=== PATIENT | female | born 1980 | race Caucasian/White ===

== ENCOUNTER 2016-09-29 10:01 | Emergency (ER) | payer MEDICAID ==
--- NOTE | 2016-09-29 10:32 | ER Document Report ---
ED General - General Chief Complaint: Shortness Of Breath Stated Complaint: SHORTNESS OF BREATH Time Seen by Provider: 09/29/16 10:32 Mode of Arrival: Ambulatory Information source: Patient Notes: 35-year-old female 4 para 3 who is 35 weeks presents with complaints of 1 month duration of shortness of breath that worsens when she lays flat. Patient denies any fevers or chills denies any productive cough. Patient notes symptoms are intermittent throughout this month. TRAVEL OUTSIDE OF THE [place] IN LAST 30 DAYS: No - HPI Onset: Just prior to arrival Onset/Duration: Sudden Quality of pain: No pain Severity: Mild Pain Level: Denies Associated symptoms: Shortness of breath Exacerbated by: Supine Relieved by: Standing Similar symptoms previously: Yes Recently seen / treated by doctor: No - Related Data Allergies/Adverse Reactions: No Known Allergies Allergy (Unverified 09/29/16 10:09) Past Medical History - Social History Smoking Status: Never Smoker Cigarette use (# per day): No Chew tobacco use (# tins/day): No Smoking Education Provided: No Frequency of alcohol use: None Drug Abuse: None Family History: Reviewed & Not Pertinent Patient has suicidal ideation: No Patient has homicidal ideation: No Renal/ Medical History: Denies: Hx Peritoneal Dialysis Psychiatric Medical History: Reports: Hx Depression Past Surgical History: Reports: Hx Section - x2 Review of Systems - Review of Systems Notes: REVIEW OF SYSTEMS: CONSTITUTIONAL : Denies fever, chills, or sweats. Denies recent illness. EENT: Denies eye, ear, throat, or mouth pain or symptoms. Denies nasal or sinus congestion or discharge. Denies throat, tongue, or mouth swelling or difficulty swallowing. CARDIOVASCULAR: Denies chest pain. Denies palpitations or racing or irregular heart beat. Denies ankle edema. RESPIRATORY: admits to sob GASTROINTESTINAL: Denies abdominal pain or distention. Denies nausea, vomiting , or diarrhea. Denies blood in vomitus, stools, or per rectum. Denies black, tarry stools. Denies constipation. GENITOURINARY: Denies difficulty urinating, painful urination, burning, frequency, blood in urine, or discharge. FEMALE GENITOURINARY: Denies vaginal bleeding, heavy or abnormal periods, irregular periods. Denies vaginal discharge or odor. MUSCULOSKELETAL: Denies back or neck pain or stiffness. Denies joint pain or swelling. SKIN: Denies rash, lesions or sores. HEMATOLOGIC : Denies easy bruising or bleeding. LYMPHATIC: Denies swollen, enlarged glands. NEUROLOGICAL: Denies confusion or altered mental status. Denies passing out or loss of consciousness. Denies dizziness or lightheadedness. Denies headache. Denies weakness or paralysis or loss of use of either side. Denies problems with gait or speech. Denies sensory loss, numbness, or tingling. Denies seizures. PSYCHIATRIC: Denies anxiety or stress. Denies depression, suicidal ideation, or homicidal ideation. ALL OTHER SYSTEMS REVIEWED AND NEGATIVE. Dictation was performed using [email or web address] voice recognition software PHYSICAL EXAMINATION: GENERAL: Well-appearing, well-nourished and in no acute distress. HEAD: Atraumatic, normocephalic. EYES: Pupils equal round and reactive to light, extraocular movements intact, conjunctiva are normal. ENT: Nares patent, oropharynx clear without exudates. Moist mucous membranes. NECK: Normal range of motion, supple without lymphadenopathy LUNGS: Breath sounds clear to auscultation bilaterally and equal. No wheezes rales or rhonchi. HEART: Regular rate and rhythm without murmurs ABDOMEN: gravid abd Female : deferred Musculoskeletal: Normal range of motion, no pitting or edema. No cyanosis. NEUROLOGICAL: Cranial nerves grossly intact. Normal speech, normal gait. Normal sensory, motor exams PSYCH: Normal mood, normal affect. SKIN: Warm, Dry, normal turgor, no rashes or lesions noted. Physical Exam - Vital signs Vitals: Temp Pulse Resp BP Pulse Ox 97.7 F 102 H 20 117/66 97 09/29/16 10:09 09/29/16 10:09 09/29/16 10:09 09/29/16 10:09/29/16 10:09 Course - Re-evaluation Re-evalutation: 09/29/16 10:35 Patient has probable shortness of breath due to her , since it worsened when she lays flat I believe it is the baby pushing on the diaphragm. X-ray is pending at this time no life-threatening issues are noted I did discuss with her risks and benefits of a CTA looking for a pulmonary emboli but we defer at this time 09/29/16 11:02 Given that shortness of breath has been constant, over the past month patient is in no significant respiratory distress, I will discharge her to follow-up upstairs with labor and delivery for evaluation of the . We did again discuss a pulmonary emboli and defer at this time for further imaging After performing a Medical Screening Examination, I estimate there is LOW risk for RUPTURED ESOPHAGUS, PNEUMOTHORAX, PULMONARY EMBOLISM, ACUTE CORONARY SYNDROME, OR THORACIC AORTIC DISSECTION, thus I consider the discharge disposition reasonable. I have reevaluated this patient multiple times and no significant life threatening changes are noted. The patient and I have discussed the diagnosis and risks, and we agree with discharging home with close follow-up. We also discussed returning to the Emergency Department immediately if new or worsening symptoms occur. We have discussed the symptoms which are most concerning (e.g., bloody sputum, worsening pain or shortness of breath) that necessitate immediate return. - Vital Signs Vital signs: Temp Pulse Resp BP Pulse Ox 97.7 F 102 H 20 117/66 97 09/29/16 10:09/29/16 10:09/29/16 10:09/29/16 10:09/29/16 10:09 - Diagnostic Test Radiology reviewed: Image reviewed, Reports reviewed - No acute abnormality Discharge - Discharge Clinical Impression: sob in Dyspnea Qualifiers: Dyspnea type: unspecified Qualified Code(s): R06.00 - Dyspnea, unspecified Condition: Stable Disposition: LABOR CHECK Instructions: Dyspnea, Nonspecific ([facility]) Additional Instructions: Follow up with your physician tomorrow for further care or return to the ED IMMEDIATELY if symptoms worsen or new concerns occur. If you cannot afford to follow up with your primary care physician a list of low cost clinics have been provided at the end of your discharge papers as well.
--- NOTE | 2016-09-29 10:59 | RADIOLOGY REPORT (SQ) ---
EXAM DESCRIPTION: CHEST PA/LAT COMPLETED DATE/TIME: 09/29/2016 10:52 am REASON FOR STUDY: sob, COMPARISON: None. EXAM PARAMETERS: NUMBER OF VIEWS: two views TECHNIQUE: Digital Frontal and Lateral radiographic views of the chest acquired. RADIATION DOSE: NA LIMITATIONS: none FINDINGS: LUNGS AND PLEURA: No opacities, masses or pneumothorax. No pleural effusion. MEDIASTINUM AND HILAR STRUCTURES: No masses or contour abnormalities. HEART AND VASCULAR STRUCTURES: Heart normal size. No evidence for failure. BONES: No acute findings. HARDWARE: None in the chest. OTHER: No other significant finding. IMPRESSION: NO SIGNIFICANT RADIOGRAPHIC FINDING IN THE CHEST. TECHNICAL DOCUMENTATION: JOB ID: [id number] [employer]- All Rights Reserved
[2016-09-29 11:10] VITALS: BP 107/72
== END 2016-09-29 11:10 | disposition admitted as inpatient to this hospital (09) ==
LOC: ER 10:01
DX: O26.93 Pregnancy related conditions, unspecified, third trimester (principal); R06.02 Shortness of breath; R06.00 Dyspnea, unspecified; Z3A.35 35 weeks gestation of pregnancy
CPT/HCPCS: 71020; 99284

== ENCOUNTER 2016-09-29 11:16 | Outpatient (CLI) | payer MEDICAID ==
--- NOTE | 2016-09-29 12:12 | Non Stress Test Report ---
Non Stress Test Datetime Report Generated by CPN: 09/29/2016 12:11 DEMOGRAPHIC EGA NST: 35.2 INDICATION Indication for Study: Other Indication for Study (NST) Other: AMA MONITORING Monitor Explained: Monitor Explained; Test Explained; Patient Verbalized Understanding Time on Monitor: 09/29/2016 11:33 Time off Monitor: 09/29/2016 12:03 NST Duration: 30 NST INTERVENTIONS NST Interventions: PO Hydration Physician Notified NST: Dr Dorado BABY A: [id number] BABY A Movement : Present Contraction Frequency : none FHR Baseline : 135 Accelerations : 15X15 Decelerations : None Variability : Moderate 6-25bpm NST Review: Meets Criteria for Reactive NST NST Review and Verified By : Gage Short RN NST Results: Reactive NST REPORT Report Trigger: Send Report
== END 2016-09-29 12:12 | disposition home or self-care (01) ==
LOC: LC 11:16
PROVIDERS: ATTEND Obstetrics & Gynecology
PROC: 4A1HXCZ Monitoring of Products of Conception, Cardiac Rate, External Approach (ICD-10-PCS; principal; 2016-09-29)
DX: O09.523 Supervision of elderly multigravida, third trimester (principal); Z3A.35 35 weeks gestation of pregnancy
CPT/HCPCS: 59025

== ENCOUNTER 2016-10-10 09:33 | Outpatient (CLI) | payer MEDICAID | END 2016-10-10 09:59 | disposition home or self-care (01) | LOC: LC 09:33 | PROVIDERS: ATTEND Obstetrics & Gynecology | PROC: 4A1HXCZ Monitoring of Products of Conception, Cardiac Rate, External Approach (ICD-10-PCS; principal; 2016-10-10) | DX: O09.523 Supervision of elderly multigravida, third trimester (principal); Z3A.36 36 weeks gestation of pregnancy | CPT/HCPCS: 59025 ==

== ENCOUNTER 2016-10-24 09:31 | Outpatient (CLI) | payer MEDICAID ==
--- NOTE | 2016-10-24 11:45 | RADIOLOGY REPORT (SQ) ---
EXAM DESCRIPTION: U/S OB LIMITED COMPLETED DATE/TIME: 10/24/2016 11:31 am REASON FOR STUDY: BURT COMPARISON: None. TECHNIQUE: Limited transvaginal grayscale ultrasound for evaluation of specific requested obstetrica l parameters. LIMITATIONS: None. FINDINGS: BURT: 7.4 cm. FHR: 139 beats per minute. PRESENTATION: Cephalic. OTHER: Posterior placenta. IMPRESSION: LIMITED OBSTETRICAL ULTRASOUND WITH MEASURED PARAMETERS DELINEATED ABOVE. Trimester of : Third trimester - 28 weeks to delivery. TECHNICAL DOCUMENTATION: JOB ID: [id number] [employer]- All Rights Reserved
== END 2016-10-24 11:45 | disposition home or self-care (01) ==
LOC: LC 09:31
PROVIDERS: ATTEND Obstetrics & Gynecology
DX: Z34.93 Encounter for supervision of normal pregnancy, unspecified, third trimester (principal)
CPT/HCPCS: 59025; 76815

== ENCOUNTER 2016-10-26 05:03 | Inpatient (IN) | payer MEDICAID ==
[2016-10-21 11:55] LABS: ABSOLUTE EOSINOPHILS # (AUTO) 0.1 10^3/uL (0.0-0.6); ABSOLUTE LYMPHOCYTES (AUTO) 1.6 10^3/uL (0.5-4.7); ABSOLUTE MONOCYTES (AUTO) 0.4 10^3/uL (0.1-1.4); ABSOLUTE NEUT (AUTO) 5.8 10^3/uL (1.7-8.2); BASOPHILS % (AUTO) 0.2 % (0-2); EOSINOPHILS % (AUTO) 1.3 % (0-6); HEMATOCRIT 35.2 % (36.0-47.0); HEMOGLOBIN 11.8 g/dL (12.0-15.5); HGB HCT DIFFERENCE 0.2; LYMPHOCYTES % (AUTO) 19.9 % (13-45); MEAN CORPUSCULAR HEMOGLOBIN 29.4 pg (27.0-33.4); MEAN CORPUSCULAR HGB CONC 33.4 g/dL (32.0-36.0); MEAN CORPUSCULAR VOLUME 88 fl (80-97); MONOCYTES % (AUTO) 5.3 % (3-13); RED CELL DISTRIBUTION WIDTH 15.3 % (11.5-14.0); SEGMENTED NEUTROPHILS % (AUTO) 73.3 % (42-78); WHITE BLOOD COUNT 7.9 10^3/uL (4.0-10.5)
[2016-10-21 11:57] LABS: APPEARANCE,URINE CLEAR; BILIRUBIN,URINE NEGATIVE (NEGATIVE); GLUCOSE, URINE NEGATIVE (NEGATIVE); KETONES,URINE NEGATIVE (NEGATIVE); LEUKOCYTE ESTERASE,URINE NEGATIVE (NEGATIVE); NITRITE,URINE NEGATIVE (NEGATIVE); PROTEIN,URINE NEGATIVE (NEGATIVE); URINE SPECIFIC GRAVITY 1.002; UROBILINOGEN,URINE NEGATIVE mg/dL (<2.0)
[2016-10-21 12:13] LABS: URINE BARBITURATES SCREEN NEGATIVE; URINE METHADONE SCREEN NEGATIVE; URINE OPIATES LOW NEGATIVE; URINE PHENCYCLIDINE SCREEN NEGATIVE
[~2016-10-26 05:03] MED LIST: CEFAZOLIN 1 GM/D5W RTU 1 GM/50 ML RTUPB IV PRN; LACTATED RINGERS 1000 ML IV PRN; RINGERS SOLUTION,LACTATED 1,000 ML IV PRN
[2016-10-26] MEDS ORDERED: KETAMINE HCL INJ 500 MG/10 ML VIAL ONE (07:33)
[2016-10-26] MEDS ORDERED: OXYTOCIN/NORMAL SALINE 20 UNIT/1,000 ML RTUINJ ONE (07:33)
[2016-10-26] MEDS ORDERED: EPHEDRINE SULFATE INJ 50 MG/1 ML AMPULE ONE (07:34)
[2016-10-26] MEDS ORDERED: FENTANYL CITRATE INJ/PF 100 MCG/2 ML AMPUL ONE ×2 (07:34→09:21)
[2016-10-26] MEDS ORDERED: MIDAZOLAM 2 MG/2 ML INJ ONE (07:34)
[2016-10-26] MEDS ORDERED: OXYTOCIN 10 UNIT/ML VIAL ONE (07:34)
[2016-10-26] MEDS ORDERED: CEFAZOLIN INJ 1 GM VIAL ONE (08:12)
[2016-10-26] MEDS ORDERED: MORPHINE SULFATE 10 MG/ML INJ IV PRN (08:27)
[2016-10-26] MEDS ORDERED: PROMETHAZINE HCL INJ 25 MG/1 ML VIAL IV PRN ×3 (08:27→09:55)
[2016-10-26] MEDS ORDERED: DIPHENHYDRAMINE HCL 50 MG/ML VIAL IV PRN (08:27)
[2016-10-26] MEDS ORDERED: FENTANYL CITRATE INJ/PF 100 MCG/2 ML AMPUL IV PRN ×3 (08:27)
[2016-10-26] MEDS ORDERED: MEPERIDINE HCL/PF INJ 25 MG/1 ML DISP.SYRIN IV PRN (08:27)
[2016-10-26] MEDS ORDERED: ONDANSETRON HCL INJ/PF 4 MG/2 ML SDV IV PRN (08:38)
[2016-10-26] MEDS ORDERED: ACETAMINOPHEN 100 ML IV ONE (09:43)
--- NOTE | 2016-10-26 09:47 | Brief Operative Note ---
BRIEF OPERATIVE REPORT DATE OF SURGERY: 10/26/16 TIME OF SURGERY: 09:30 PREOPERATIVE DIAGNOSIS: REpeat C/S with BTL, PUND at 39+1ega, , Rh negative, Undesired Fertility, MOrbid obesity POSTOPERATIVE DIAGNOSIS: FREDRICK - delivered, Pelvic Adhesive disease, Fibroid uterus SURGEON: DIONNE VALDEZ FINDINGS: normal tubes/ovaries, several small fibroids noted on anterior and posterior surface of uterus. Bilateral tubes occluded with filschie x 2, VFI delivered at 0832, weight 7#10oz, Apgars 8/9, significant adhesive disease from prior section. COMPLICATIONS: NONE ESTIMATED BLOOD LOSS: 700ml TISSUE REMOVED OR ALTERED: placenta and cord not sent to pathology TECHNICAL PROCEDURE: Repeat Low Transverse Section with Bilateral Tubal Ligation.
[2016-10-26] MEDS ORDERED: OXYTOCIN/NORMAL SALINE 1,000 ML IV PRN (09:55)
[2016-10-26] MEDS ORDERED: ACETAMINOPHEN 100 ML IV PRN (09:55)
[2016-10-26] MEDS ORDERED: MEASLES,MUMPS&RUBELLA VACC/PF 0.5 ML VIAL SUBCUT PRN (09:55)
[2016-10-26] MEDS ORDERED: DIPH/PERTUSS(ACELL)/TETANUS VAC/PF 0.5 ML SYR (>=10YO) IM PRN (09:55)
[2016-10-26] MEDS ORDERED: SIMETHICONE 80 MG TAB.CHEW PO PRN (09:55)
[2016-10-26] MEDS ORDERED: HYDROMORPHONE HCL INJ/PF 2 MG/ML AMPULE IV PRN (09:55)
[2016-10-26] MEDS ORDERED: OXYCODONE-ACETAMINOPHEN 5-325 MG TABLET PO PRN (09:55)
[2016-10-26] MEDS ORDERED: ACETAMINOPHEN 325 MG TABLET PO PRN (09:55)
[2016-10-26] MEDS ORDERED: MORPHINE SULFATE 10 MG/ML INJ ONE (10:25)
[2016-10-26] MEDS ORDERED: DEXAMETHASONE SOD PHOSPHATE INJ 4 MG/1 ML VIAL ONE (11:53)
[2016-10-26] MEDS ORDERED: METOCLOPRAMIDE HCL INJ/PF 10 MG/2 ML SDV ONE (11:53)
[2016-10-26] MEDS ORDERED: ONDANSETRON HCL INJ/PF 4 MG/2 ML SDV ONE (11:53)
[2016-10-26] MEDS ORDERED: KETOROLAC TROMETHAMINE 60 MG/2 ML SDV ONE (11:53)
[2016-10-26] MEDS ORDERED: PHENYLEPHRINE HCL INJ/PF 10 MG/1 ML SDV ONE (11:53)
--- NOTE | 2016-10-26 15:44 | PDOC DELIVERY SUMMARY ---
Delivery Summary - Maternal Hx : IV Hx Para: II Hx # Term Pregnancies: 3 Hx # Pregnancies: 0 Hx Total # of Abortions (Sponateous & Elective): 1 Number of Living Children: 2 - now 3 VIVIENNE: 11/01/16 Gestational Age: 39+1 Risk Factors: Other - obesity Ruptured Membranes: AROM Time of Rupture: 08:31 Fluids: Clear Fluid Description: clear - Delivery Labor: Not In Labor Presentation: Vertex Heart Rate Monitoring: Done Pre-Operatively Uterine Contraction Monitoring: External Support Person Present: Yes Location: OR : Scheduled Placenta: Within Normal Limits Number of Vessels (Cord): 3 Nuchal Cord: No Delivery of Placenta Date: 10/26/16 Delivery of Placenta Time: 08:33 - Medications Type of Anesthesia:: Spinal - Infant Assess and Care Baby 1 Female Delivery of Infant Date: 10/26/16 Delivery of Time: 08:32 at 1 minute: 8 at 5 minutes: 9 Preprinted Number On Band: [id number] Skin to Skin: No To Nursery At: 08:37 Mode of Transport: Bassinet Infant Delivery Weight: 3455 kg Delivery Length: 19.25 in - Delivery Personnel [employer] Repairer: NILESH MENDEZ Nursery RN: SUZANNE DRAKE MD: DIONNE VALDEZ
[2016-10-26] MEDS: KETOROLAC TROMETHAMINE INJ/PF 30 MG/1 ML SDV IV SCH (17:34)
[2016-10-26] MEDS: DOCUSATE SODIUM 100 MG CAPSULE PO SCH (17:35)
[2016-10-26] MEDS: PRENATAL VITAMIN W-O CA NO5/FE FUMARATE/FA CAPSULE PO SCH (19:40)
[2016-10-26] MEDS: OXYCODONE-ACETAMINOPHEN 5-325 MG TABLET PO PRN (20:34)
[2016-10-27] MEDS: KETOROLAC TROMETHAMINE INJ/PF 30 MG/1 ML SDV IV SCH (01:44)
[2016-10-27] MEDS: OXYCODONE-ACETAMINOPHEN 5-325 MG TABLET PO PRN ×4 (07:30→21:02)
--- NOTE | 2016-10-27 07:56 | Operative Report ---
Operative Report DATE OF SURGERY: 10/26/16 PREOPERATIVE DIAGNOSIS: Repeat C/S with BTL, PUND at 39+1ega, , Rh negative, Undesired Fertility, Morbid obesity POSTOPERATIVE DIAGNOSIS: FREDRICK - delivered, Pelvic Adhesive disease, Fibroid uterus OPERATION: Repeat Low Transverse Section with Bilateral Tubal Ligation. SURGEON: DIONNE VALDEZ ANESTHESIA: Spinal TISSUE REMOVED OR ALTERED: placenta and cord not sent to pathology COMPLICATIONS: NONE ESTIMATED BLOOD LOSS: 700ml INTRAOPERATIVE FINDINGS: normal tubes/ovaries, several small fibroids noted on anterior and posterior surface of uterus. Bilateral tubes occluded with filschie x 2, VFI delivered at 0832, weight 7#10oz, Apgars 8/9, significant adhesive disease from prior section. PROCEDURE: Anesthesia provider: [Nelson SAMSON, [place] CRNA] Estimated blood loss: [700ml] Urine output: [150ml] IV fluids: [2300ml] Indications: [35yo at 39+1ega presented for repeat section and undesired fertility. She was counseled and risks/benefits/alternatives reviewed with the patient and she desires to proceed with planned procedure. She is 100% sure that she has no future fertility desires.] Procedure: The patient was taken to the operating room where spinal anesthesia was obtained and found to be adequate. She was then prepped and draped in the normal sterile fashion and placed in the dorsal supine position with a leftward tilt. A Pfannenstiel skin incision was then made and carried through to the underlying layers of the fascia with the scalpel. The fascia was incised in the midline and the incision extended laterally with the Arnett scissors. The superior aspect of the fascial incision was then grasped with [place] clamps elevated and the underlying rectus muscles dissected off [bluntly]. Attention was then turned to the inferior aspect of the fascial incision which in a similar fashion was grasped, tented up with Angelo clamps, and the rectus muscles dissected off [bluntly]. The rectus muscles were then in the midline and the peritoneum at the amount identified and entered [bluntly]. The peritoneal incision was then extended superiorly and inferiorly with good visualization of the bladder. The bladder blade was inserted and the vesicouterine peritoneum identified grasped with Mexican pickups and entered sharply with the Metzenbaum scissors. This incision was then extended laterally with the Metzenbaum scissors and a bladder flap created digitally. The bladder blade was then reinserted and the lower uterine segment incised in a transverse fashion with the scalpel. The uterine incision was then extended bluntly. The bladder blade was removed and the 's head was delivered from cephalic presentation atraumatically. The nose and mouth were suctioned and the cord doubly clamped and cut. And the infant was handed off to waiting pediatricians. The placenta was then delivered spontaneously and the uterus exteriorized and cleared of all clots and debris. The uterine incision was then repaired with 1- 0 Vicryl in a running locked fashion. A second layer of the same suture was used to obtain hemostasis via imbrication of the initial layer. The bladder flap was then repaired with 3-0 chromic in a running fashion. The right fallopian tube was identified and followed out to the fimbriated end and filschie clips times 2 were placed in the mid ampullary portion of the fallopian tube. This procedure was repeated on the patients left thus completing bilateral tubal ligation. The uterus was returned to the patient's abdomen and Interceed was placed overlying the uterine incision to prevent adhesions. The gutters were cleared of all clots and debris. All operative sites were noted to be hemostatic. The fascia was reapproximated with 0 Vicryl in a running fashion from each lateral edge to the midline. The skin was closed with 3-0 Monocryl in a running subcuticular fashion with overlying Dermabond for additional dressing as well as wound closure. The patient tolerated the procedure well. Sponge lap needle and instrument counts are correct times 2. 2 g of Ancef were given prior to skin incision. The patient was taken to the recovery area awake and in stable condition.
[2016-10-27 08:03] LABS: HEMATOCRIT 27.6 % (36.0-47.0); HEMOGLOBIN 9.1 g/dL (12.0-15.5); HGB HCT DIFFERENCE -0.3; MEAN CORPUSCULAR HEMOGLOBIN 29.2 pg (27.0-33.4); MEAN CORPUSCULAR HGB CONC 33.1 g/dL (32.0-36.0); MEAN CORPUSCULAR VOLUME 88 fl (80-97); RED BLOOD COUNT 3.13 10^6/uL (3.72-5.28); RED CELL DISTRIBUTION WIDTH 15.5 % (11.5-14.0); WHITE BLOOD COUNT 9.2 10^3/uL (4.0-10.5)
[2016-10-27] MEDS: DOCUSATE SODIUM 100 MG CAPSULE PO SCH ×2 (10:29→18:09)
[2016-10-27] MEDS: PRENATAL VITAMIN W-O CA NO5/FE FUMARATE/FA CAPSULE PO SCH (10:29)
[2016-10-27] MEDS: IBUPROFEN 800 MG TABLET PO SCH ×3 (12:30→23:33)
[2016-10-28] MEDS: OXYCODONE-ACETAMINOPHEN 5-325 MG TABLET PO PRN ×2 (03:56→08:06)
[2016-10-28] MEDS: IBUPROFEN 800 MG TABLET PO SCH (05:58)
[2016-10-28 08:08] VITALS: BP 98/43
--- NOTE | 2016-10-28 09:18 | PDOC PROGRESS REPORT ---
Subjective-OB Subjective: Post Delivery Day: 35 year old. Denies any needs at this time. Ready to go home. Feels well mentally since delivery. Physical Exam (OB) Vital Signs: Temp Pulse Resp BP Pulse Ox 98.0 F 75 15 98/43 L 98 10/28/16 07:59 10/28/16 07:59 10/28/16 07:59 10/28/16 07:59 10/28/16 07:59 Intake & Output 10/27/16 10/28/16 10/29/16 06:59 06:59 06:59 Intake Total 300 900 Output Total 1600 450 Balance -1300 450 - PIH/Pre-Eclampsia Clonus: Negative Headache: Absent Visual Changes: No - Dressing Removed: No - open to air Incision: Well Approximated Closure Type: Surgical Glue - Bilateral Tubal Ligation Dressing Removed: No - open to air Site: Well Approximated - Lochia Lochia Amount: Small 10-25 ml Lochia Color: Rubra/Red - Abdomen Description: Tender, Soft Hernia Present: No Bowel Sounds: Normoactive Flatus Presence: Present Stool: No Fundal Description: Firm, Midline Fundal Height: u/u - u/2 Objective-Diagnostic Laboratory: 10/27/16 07:16 10/27/16 07:16 Blood Type A NEGATIVE
--- NOTE | 2016-10-28 09:31 | PDOC DISCHARGE SUMMARY ---
Final Diagnosis Discharge Date: 10/28/16 - Final Diagnosis (1) AMA (advanced maternal age) multigravida 35+ Is this a current diagnosis for this admission?: Yes (2) Delivery by elective caesarean section Is this a current diagnosis for this admission?: Yes (3) History of depression Is this a current diagnosis for this admission?: Yes (4) Insufficient antepartum care Is this a current diagnosis for this admission?: Yes (5) Obesity Is this a current diagnosis for this admission?: Yes (6) Is this a current diagnosis for this admission?: Yes Discharge Data - Discharge Medication Home Medications: Vit/Iron Fumarate/FA [ Tablet] 1 tab PO DAILY 09/29/16 Ferrous Sulfate [Iron] 2 tab PO DAILY 10/18/16 Docusate Sodium [Colace 100 mg Capsule] 100 mg PO BID #30 capsule 10/28/16 Docusate Sodium [Stool Softener] 1 - 2 cap PO DAILY #0 capsule 10/28/16 Ibuprofen [Motrin 800 mg Tablet] 800 mg PO Q6 #30 tablet 10/28/16 Oxycodone HCl/Acetaminophen [Percocet 5-325 mg Tablet] 1 tab PO Q4HP PRN #20 tablet 10/28/16 Gestational Age: 39.1 wks Reason(s) for Admission: Ceasarean Section-Repeat Intrapartum Procedure(s): : Low Cervical, Transverse - Data Baby 1 Female at 1 minute: 8 at 5 minutes: 9 Weight: 3.459 kg Home with Mother: Yes Complications: No - Diagnosis Test Laboratory: Temp Pulse Resp BP Pulse Ox 98.0 F 75 15 98/43 L 98 10/28/16 07:59 10/28/16 07:59 10/28/16 07:59 10/28/16 07:59 10/28/16 07:59 10/21/16 10/21/16 10/27/16 10:58 11:07 07:16 RBC 4.00 3.13 L Hgb 11.8 L 9.1 L Hct 35.2 L 27.6 L Urine Opiates Screen NEGATIVE - Discharge information/Instructions Discharge Activity: Activity As Tolerated, Balance Activity w/Rest, No Lifting Over 10 Pounds, No Lifting/Push/Pulling, Non-Ambulatory Child, Pelvic Rest, Slowly Increase Activity, No tub bath Discharge Diet: Regular Disposition: HOME, SELF-CARE Follow up with: [facility] in: 1, Weeks
[2016-10-28] MEDS: PRENATAL VITAMIN W-O CA NO5/FE FUMARATE/FA CAPSULE PO SCH (10:31)
[2016-10-28] MEDS: DOCUSATE SODIUM 100 MG CAPSULE PO SCH (10:31)
== END 2016-10-28 12:15 | disposition home or self-care (01) | DRG 765 ==
LOC: 2S 05:03
PROVIDERS: ADMIT Student in an Organized Health Care Education/Training Program; ATTEND Student in an Organized Health Care Education/Training Program
PROC: 0UL70CZ Occlusion of Bilateral Fallopian Tubes with Extraluminal Device, Open Approach (ICD-10-PCS; 2016-10-26)
PROC: 4A1HXCZ Monitoring of Products of Conception, Cardiac Rate, External Approach (ICD-10-PCS; 2016-10-26)
PROC: 10D00Z1 Extraction of Products of Conception, Low, Open Approach (ICD-10-PCS; principal; 2016-10-26 07:45)
PROC: 3E0234Z Introduction of Serum, Toxoid and Vaccine into Muscle, Percutaneous Approach (ICD-10-PCS; 2016-10-27)
DX: O34.211 Maternal care for low transverse scar from previous cesarean delivery (principal); Z68.41 Body mass index [BMI] 40.0-44.9, adult; O34.13 Maternal care for benign tumor of corpus uteri, third trimester; D25.9 Leiomyoma of uterus, unspecified; N73.6 Female pelvic peritoneal adhesions (postinfective); O99.89 Other specified diseases and conditions complicating pregnancy, childbirth and the puerperium; O99.214 Obesity complicating childbirth; O26.893 Other specified pregnancy related conditions, third trimester; E66.01 Morbid (severe) obesity due to excess calories; Z67.11 Type A blood, Rh negative; Z30.2 Encounter for sterilization; Z3A.39 39 weeks gestation of pregnancy; Z37.0 Single live birth; Z87.891 Personal history of nicotine dependence
CPT/HCPCS: 1961; 36415; 59025; 80307; 81001; 85025; 85027; 85461; 86850; 86900; 86901; 94799; C1765; J0131; J0690; J1100; J1170; J1885; J2250; J2270; J2370; J2405; J2590; J2765; J2790; J3010; J3490; J7120

== ENCOUNTER → 2019-07-01 | Outpatient (CLI) | payer MEDICAID ==
--- NOTE | 2019-07-01 20:18 | RADIOLOGY REPORT (SQ) ---
3 VIEWS OF LEFT FOOT EXAM DATE: 07/01/2019 6:44 PM CDT HISTORY: Foot pain. COMPARISON: None. FINDINGS: There is a small ossific fragment adjacent to the lateral midfoot which may represent a small chip fracture. No dislocation. Mild soft tissue swelling without foreign body. IMPRESSION: Small ossific fragment adjacent to the lateral midfoot which may represent a small chip fracture. Correlate for point tenderness in this region.
== END ==
LOC: RAD 18:42
PROVIDERS: ATTEND Nurse Practitioner Acute Care
DX: M79.672 Pain in left foot (principal)

== ENCOUNTER → 2019-12-12 | Outpatient (CLI) | payer MEDICAID ==
--- NOTE | 2019-12-12 15:07 | WOMENS IMAGING REPORT ---
EXAM DESCRIPTION: 3D SCREENING MAMMO BILAT IMAGES COMPLETED DATE/TIME: 12/12/2019 10:46 am REASON FOR STUDY: Z12.31 ENCOUNTER FOR SCREENING MAMMOGRAM FOR MALIGNANT NEOPLASM OF BREAST Z12.31 ENCNTR SCREEN MAMMOGRAM FOR MALIGNANT NEOPLASM OF BUSTER COMPARISON: None. Baseline imaging. EXAM PARAMETERS: Views: Standard craniocaudal and mediolateral oblique views of each breast recorded using digital acquisition and breast tomosynthesis. Read with the assistance of CAD. .[facility] - R2 Social [employer] Professor Version 9.2 LIMITATIONS: None. FINDINGS: No suspicious masses, suspicious calcifications or architectural distortion. No areas of c oncern. IMPRESSION: NEGATIVE MAMMOGRAM. BIRADS 1. BREAST DENSITY: b. There are scattered areas of fibroglandular density. BIRAD: ASSESSMENT: 1 NEGATIVE RECOMMENDATION: ROUTINE SCREENING COMMENT: The patient has been notified of the results by letter per MQSA requirements. Additional no tification policies are in place for contacting patient with suspicious or incomplete findings. Quality ID #[id number]: The [employer] recommends an annual screening mammogram for women aged 40 years or over. This facility utilizes a reminder system to ensure that all patients receive reminder letters, and/or direct phone calls for appointments. This includes reminders for routine scr eening mammograms, diagnostic mammograms, or other Breast Imaging Interventions when appropriate. Th is patient will be placed in the appropriate reminder system. TECHNICAL DOCUMENTATION: FINDING NUMBER: (1) ASSESSMENT: (1) JOB ID: [id number] [employer]- All Rights Reserved Reading location - IP/workstation name: [email or web address]
== END ==
LOC: WI 10:08
PROVIDERS: ATTEND Midwife
DX: Z12.31 Encounter for screening mammogram for malignant neoplasm of breast (principal)
CPT/HCPCS: 77063; 77067